=== PATIENT | female | born 1955 | race Two or more races ===

== ENCOUNTER 2023-10-27 12:41 | Emergency (ER) | payer MEDICARE, OTHER ==
[~2023-10-27] VITALS: Ht 157.5 cm; Wt 83.6 kg
[2023-10-27 15:01] VITALS: BP 135/55; PULSE 67; RESP 18; TEMP 100.9; O2SAT 96
[2023-10-27 17:15] LABS: Rapid Influenza A Positive (Negative); Rapid Influenza B Negative (Negative)
[2023-10-27 17:16] LABS: COVID19 ANTIGEN SOFIA FIA NEGATIVE (NEGATIVE)
[2023-10-27] MEDS ORDERED: BENZ100C97 PO ×3 (17:18→17:19)
[2023-10-27] MEDS ORDERED: OSEL75CA5 PO ×3 (17:18→17:19)
== END 2023-10-27 17:28 | disposition home or self-care (01) ==
LOC: ER 12:41
DX: J10.1 Influenza due to other identified influenza virus with other respiratory manifestations (principal); R07.89 Other chest pain; Z79.899 Other long term (current) drug therapy; Z88.0 Allergy status to penicillin; Z20.822 Contact with and (suspected) exposure to COVID-19
CPT/HCPCS: 36415; 71046; 87426; 87804

== ENCOUNTER 2024-11-18 13:03 | Emergency (ER) | payer OTHER ==
[~2024-11-18 13:03] MED LIST: BENZ100C97 PO; OSEL75CA5 PO
== END 2024-11-18 14:48 | disposition left against medical advice (07) ==
LOC: ER 13:03
DX: R10.9 Unspecified abdominal pain (principal); R11.2 Nausea with vomiting, unspecified; Z53.21 Procedure and treatment not carried out due to patient leaving prior to being seen by health care provider